=== PATIENT | male | born 1950 | race African-American/Black ===

== ENCOUNTER 2019-01-18 14:35 | Inpatient (IN) | payer MEDICARE ==
[~2019-01-18] VITALS: Ht 205.7 cm; Wt 104.0 kg
[2019-01-18] MEDS ORDERED: FAMOTIDINE 20MG/2ML VIAL IV STA (18:16)
[2019-01-18] MEDS ORDERED: MORPHINE SULFATE 4 MG/ML CPJ (NOT FOR IM USE) IV STA (18:16)
[2019-01-18] MEDS ORDERED: SODIUM CHLORIDE 0.9% 1,000 ML IV ONE (18:16)
[2019-01-18] MEDS ORDERED: ONDANSETRON HCL 4MG/2ML INJ IV STA (18:16)
[2019-01-18] MEDS ORDERED: MORPHINE SULFATE 10 MG/ML CPJ IV ONE (20:00)
[2019-01-18 20:22] LABS: HEMATOCRIT. 46.8 % (42.0-52.0); HEMOGLOBIN. 15.3 g/dL (14.0-18.0); MEAN CORPUSCULAR HEMOGLOBIN 30.3 pg (28.0-32.0); MEAN CORPUSCULAR VOLUME 92.6 fL (80.0-94.0); MEAN PLATELET VOLUME 9.7 fl (7.4-10.4); PLATELET 189 x1000/uL (130-400); RED BLOOD CELL COUNT 5.06 mill/uL (4.7-6.1); RED CELL DISTRIBUTION WIDTH 15.4 % (11.6-14.6)
[2019-01-18 20:28] LABS: CHLORIDE 110 mEq/L (98-107)
[2019-01-18 20:29] LABS: INR 1.3; PROTHROMBIN TIME 12.8 sec (9.1-11.1)
[2019-01-18] MEDS ORDERED: SODIUM CHLORIDE 0.9% 1000ML BAG (SEPSIS BOLUS) IV ONE (20:30)
[2019-01-18] MEDS ORDERED: PIPERACILLIN/TAZ 3.375G PREMIX 50 ML IV ONE (20:30)
[2019-01-18] MEDS ORDERED: VANCOMYCIN 1 G PREMIX 200 ML IV SCH (21:00)
[2019-01-18] MEDS ORDERED: ONDANSETRON HCL 4MG/2ML INJ IV PRN ×3 (21:00→23:00)
[2019-01-18 21:35] LABS: PLATELET ESTIMATE NORMAL
[2019-01-18] MEDS ORDERED: BUPIVACAINE HCL 0.5% (5MG/ML) 50ML ONE (21:39)
[2019-01-18] MEDS ORDERED: NEOSTIGMINE METHYLSULFATE 1MG/ML 10 ML VIAL ONE (22:01)
[2019-01-18] MEDS ORDERED: FENTANYL CITRATE/PF 50MCG/ML 2ML VIAL ONE (22:01)
[2019-01-18] MEDS ORDERED: ROCURONIUM BROMIDE 10MG/ML VIAL 5ML IV ONE (22:01)
[2019-01-18] MEDS ORDERED: PROPOFOL 200MG/20ML VIAL IV ONE (22:02)
[2019-01-18] MEDS ORDERED: MIDAZOLAM HCL 2 MG/2 ML VIAL ONE (22:02)
[2019-01-18] MEDS ORDERED: GLYCOPYRROLATE 0.2 MG/ML 2ML VIAL ONE (22:02)
[2019-01-18] MEDS ORDERED: DEXT 5%/0.45% NACL KCL 20MEQ/L 1,000 ML IV SCH (22:08)
[2019-01-18] MEDS ORDERED: ONDANSETRON HCL 4MG/2ML INJ ONE (22:09)
[2019-01-18] MEDS ORDERED: DEXAMETHASONE 4MG/ML 1ML VIAL ONE (22:09)
[2019-01-18] MEDS ORDERED: HYDROMORPHONE HCL/PF 2MG/ML (OR) ONE (22:29)
[2019-01-18] MEDS ORDERED: HYDROMORPHONE HCL/PF 2MG/ML CPJ IV PRN (23:00)
[2019-01-18] MEDS ORDERED: LABETALOL HCL 20MG/4ML CARPUJECT IV PRN (23:00)
[2019-01-18] MEDS ORDERED: MEPERIDINE HCL/PF 25MG/ML CPJ IV PRN (23:00)
[2019-01-19] VITALS (32 sets, daily range): BP systolic 105–188; BP diastolic 63–92
[2019-01-19] MEDS ORDERED: ACETAMINOPHEN 325MG TABLET PO PRN ×2 (00:45→01:15)
[2019-01-19] MEDS ORDERED: HYDROMORPHONE HCL/PF 2MG/ML CPJ IV PRN ×2 (00:48→11:30)
[2019-01-19] MEDS ORDERED: LABETALOL 5MG/ML SYR 20 MG/4 ML SYRINGE IV PRN (01:00)
[2019-01-19] MEDS ORDERED: LABETALOL HCL 20MG/4ML CARPUJECT IV PRN (01:00)
[2019-01-19] MEDS: DEXT 5%/0.9% NACL KCL 20MEQ/L 1,000 ML IV SCH ×3 (02:55→21:40)
[2019-01-19] MEDS: MORPHINE SULFATE 4 MG/ML CPJ (NOT FOR IM USE) IV PRN ×3 (02:56→10:31)
[2019-01-19] MEDS: VANCOMYCIN 1500MG in DEXTROSE 5% WATER 250ML IV SCH ×2 (03:28→14:53)
[2019-01-19 05:55] LABS: HEMATOCRIT. 46.4 % (42.0-52.0); HEMOGLOBIN. 15.1 g/dL (14.0-18.0); MEAN CORPUSCULAR HEMOGLOBIN 30.8 pg (28.0-32.0); MEAN CORPUSCULAR VOLUME 94.6 fL (80.0-94.0); MEAN PLATELET VOLUME 9.7 fl (7.4-10.4); PLATELET 192 x1000/uL (130-400); RED BLOOD CELL COUNT 4.91 mill/uL (4.7-6.1); RED CELL DISTRIBUTION WIDTH 15.9 % (11.6-14.6)
[2019-01-19 06:15] LABS: CHLORIDE 112 mEq/L (98-107)
[2019-01-19] MEDS: PIPERACILLIN/TAZ 3.375G PREMIX 50 ML IV SCH ×4 (06:27→23:40)
[2019-01-19] MEDS: LORAZEPAM 2MG/ML CPJ IV PRN ×3 (06:40→19:39)
[2019-01-19 07:23] LABS: PLATELET ESTIMATE NORMAL
[2019-01-19] MEDS: IPRATROPIUM/ALBUTEROL 0.5-3(2.5)MG/3ML NEB HHN SCH ×4 (09:10→20:01)
[2019-01-19] MEDS: FAMOTIDINE 20MG/2ML VIAL IV SCH ×2 (09:13→20:48)
[2019-01-19] MEDS: PANTOPRAZOLE SODIUM 40 MG/VIAL IV SCH (09:13)
[2019-01-19] MEDS: HYDROMORPHONE HCL/PF 2MG/ML CPJ IV PRN ×3 (11:04→20:49)
[2019-01-19] MEDS ORDERED: PIPERACILLIN/TAZ 3.375G PREMIX 50 ML IV SCH ×2 (18:00)
[2019-01-19 18:03] LABS: BG DEOXYHEMOGLOBIN 7.2 % (0.0-5.0); BG FRACTION INSPIRED OXYGEN 50; BG HCO3 ACT 22.5 mmol/L (22.0-26.0); BG METHEMOGLOBIN 0.4 % (0.0-1.5); BG OXYGEN SATURATION 92.7 % (92.0-98.5); BG OXYHEMOGLOBIN 91.4 % (94.0-97.0); BG PCO2 50.9 mmHg (35.0-45.0); BG PH 7.264 (7.350-7.450); BG PO2 65.8 mmHg (75.0-100.0); BG PRESSURE SUPPORT 8; BG SAMPLE SITE RIGHT RADIAL; BG TOTAL HEMOGLOBIN 16.3 g/dL (12.0-18.0); BG VENT MODE VENT - CPAP
[2019-01-19] MEDS: PROPOFOL 10MG/ML 100ML 100 ML IV PRN (21:40)
[2019-01-20] VITALS (42 sets, daily range): BP systolic 100–147; BP diastolic 45–91
[2019-01-20] MEDS: DEXT 5%/0.9% NACL KCL 20MEQ/L 1,000 ML IV SCH ×2 (01:53→05:38)
[2019-01-20] MEDS ORDERED: VANCOMYCIN 1500MG in DEXTROSE 5% WATER 250ML IV SCH ×2 (03:00→15:00)
[2019-01-20 05:10] LABS: MEAN CORPUSCULAR HEMOGLOBIN 30.5 pg (28.0-32.0); MEAN CORPUSCULAR VOLUME 93.2 fL (80.0-94.0); MEAN PLATELET VOLUME 9.8 fl (7.4-10.4); PLATELET 170 x1000/uL (130-400); RED BLOOD CELL COUNT 4.93 mill/uL (4.7-6.1); RED CELL DISTRIBUTION WIDTH 15.8 % (11.6-14.6)
[2019-01-20] MEDS: PROPOFOL 10MG/ML 100ML 100 ML IV PRN ×4 (05:27→21:28)
[2019-01-20] MEDS: PIPERACILLIN/TAZ 3.375G PREMIX 50 ML IV SCH ×4 (05:27→23:51)
[2019-01-20 05:31] LABS: CHLORIDE 112 mEq/L (98-107)
[2019-01-20 05:36] LABS: PHOSPHORUS 1.3 mg/dL (2.5-4.9)
[2019-01-20 05:39] LABS: CREATINE KINASE 441 IU/L (39-308)
[2019-01-20 05:41] LABS: CREATINE KINASE MB FRACTION 5.5 ng/mL (0.5-3.6)
[2019-01-20 07:32] LABS: PLATELET ESTIMATE NORMAL
[2019-01-20] MEDS: IPRATROPIUM/ALBUTEROL 0.5-3(2.5)MG/3ML NEB HHN SCH ×4 (08:26→20:17)
[2019-01-20] MEDS: DEXT 5%/0.45% NACL 1000ML 1,000 ML IV SCH (08:32)
[2019-01-20] MEDS: FAMOTIDINE 20MG/2ML VIAL IV SCH (08:32)
[2019-01-20] MEDS ORDERED: DILTIAZEM HCL 125 MG in DEXT 5% WATER 100 ML IV SCH (09:15)
[2019-01-20] MEDS ORDERED: ACETAMINOPHEN 650MG SUPP PR PRN (09:15)
[2019-01-20] MEDS ORDERED: POTASSIUM PHOS,M-BASIC-D-BASIC 20 MMOL in DEXT 5% WATER 243.3333 ML IV NR (09:30)
[2019-01-20] MEDS: PANTOPRAZOLE SODIUM 40 MG/VIAL IV SCH (09:49)
[2019-01-20 09:53] LABS: BG BASE EXCESS -5.1 mmol/L (-2.0-2.0); BG CARBOXYHEMOGLOBIN 0.9 % (0.5-1.5); BG DEOXYHEMOGLOBIN 1.7 % (0.0-5.0); BG METHEMOGLOBIN 0.4 % (0.0-1.5); BG OXYGEN SATURATION 98.3 % (92.0-98.5); BG PCO2 33.4 mmHg (35.0-45.0); BG PH 7.374 (7.350-7.450); BG PO2 106.2 mmHg (75.0-100.0); BG SAMPLE SITE RIGHT RADIAL; BG TIDAL VOLUME(mL) 550 mL; BG TOTAL HEMOGLOBIN 15.4 g/dL (12.0-18.0); BG VENT MODE VENT - A/C; BG VENT RATE 12 set
[2019-01-20] MEDS: DILTIAZEM HCL 125 MG in DEXT 5% WATER 100 ML IV PRN ×2 (11:00→19:20)
[2019-01-20 11:35] LABS: CLARITY URINE CLOUDY (CLEAR); COLOR URINE DARK YELLOW (YELLOW); KETONES URINE NEGATIVE (NEGATIVE); LEUKOCYTE ESTERASE URINE NEGATIVE (NEGATIVE); NITRITE URINE NEGATIVE (NEGATIVE); OCCULT BLOOD URINE 2+ (NEGATIVE); PROTEIN URINE 2+ (NEGATIVE); SPECIFIC GRAVITY URINE 1.026 (1.005-1.030); UROBILINOGEN URINE 0.2 E.U./dL (0.2-1.0)
[2019-01-20] MEDS: HYDROMORPHONE HCL/PF 2MG/ML CPJ IV PRN ×2 (15:06→19:45)
[2019-01-20] MEDS: VANCOMYCIN 1,750 MG in DEXT 5% WATER 250 ML IV SCH ×2 (15:10→22:55)
[2019-01-20] MEDS ORDERED: IOHEXOL-350 100 ML BOTTLE ONE (18:26)
[2019-01-20] MEDS ORDERED: ASPIRIN 300MG SUPP PR NR (18:30)
[2019-01-20] MEDS: FLUCONAZOLE 400MG/200ML BAG 200 ML IV SCH (19:02)
[2019-01-21] VITALS (30 sets, daily range): BP systolic 106–166; BP diastolic 63–105
[2019-01-21] MEDS: HYDROMORPHONE HCL/PF 2MG/ML CPJ IV PRN ×5 (00:10→18:13)
[2019-01-21] MEDS: IPRATROPIUM/ALBUTEROL 0.5-3(2.5)MG/3ML NEB HHN SCH ×5 (01:52→20:18)
[2019-01-21] MEDS: PROPOFOL 10MG/ML 100ML 100 ML IV PRN ×2 (02:35→08:20)
[2019-01-21] MEDS: PIPERACILLIN/TAZ 3.375G PREMIX 50 ML IV SCH ×3 (05:13→17:51)
[2019-01-21 05:55] LABS: HEMATOCRIT. 42.9 % (42.0-52.0); MEAN CORPUSCULAR HEMOGLOBIN 30.7 pg (28.0-32.0); MEAN CORPUSCULAR VOLUME 93.8 fL (80.0-94.0); MEAN PLATELET VOLUME 10.1 fl (7.4-10.4); PLATELET 174 x1000/uL (130-400); RED BLOOD CELL COUNT 4.57 mill/uL (4.7-6.1); RED CELL DISTRIBUTION WIDTH 15.7 % (11.6-14.6)
[2019-01-21] MEDS: VANCOMYCIN 1,750 MG in DEXT 5% WATER 250 ML IV SCH (06:33)
[2019-01-21 07:49] LABS: PLATELET ESTIMATE NORMAL
[2019-01-21 07:53] LABS: BG BASE EXCESS -2.5 mmol/L (-2.0-2.0); BG CARBOXYHEMOGLOBIN 0.6 % (0.5-1.5); BG DEOXYHEMOGLOBIN 3.6 % (0.0-5.0); BG FRACTION INSPIRED OXYGEN 45; BG METHEMOGLOBIN 0.3 % (0.0-1.5); BG OXYGEN SATURATION 96.4 % (92.0-98.5); BG OXYHEMOGLOBIN 95.5 % (94.0-97.0); BG PCO2 48.3 mmHg (35.0-45.0); BG PH 7.315 (7.350-7.450); BG PO2 83.7 mmHg (75.0-100.0); BG SAMPLE SITE RIGHT RADIAL; BG TIDAL VOLUME(mL) 500 mL; BG TOTAL HEMOGLOBIN 13.9 g/dL (12.0-18.0); BG VENT MODE VENT - A/C; BG VENT RATE 12 set
[2019-01-21] MEDS: PANTOPRAZOLE SODIUM 40 MG/VIAL IV SCH (08:19)
[2019-01-21] MEDS ORDERED: LORAZEPAM 2MG/ML CPJ IV PRN (09:15)
[2019-01-21 11:09] LABS: BG BASE EXCESS -0.5 mmol/L (-2.0-2.0); BG CARBOXYHEMOGLOBIN 0.4 % (0.5-1.5); BG DEOXYHEMOGLOBIN 3.3 % (0.0-5.0); BG FRACTION INSPIRED OXYGEN 45; BG HCO3 ACT 24.2 mmol/L (22.0-26.0); BG METHEMOGLOBIN 0.1 % (0.0-1.5); BG OXYGEN SATURATION 96.7 % (92.0-98.5); BG OXYHEMOGLOBIN 96.2 % (94.0-97.0); BG PCO2 40.2 mmHg (35.0-45.0); BG PH 7.398 (7.350-7.450); BG PO2 81.2 mmHg (75.0-100.0); BG SAMPLE SITE RIGHT RADIAL; BG TOTAL HEMOGLOBIN 14.4 g/dL (12.0-18.0); BG VENT MODE VENT - CPAP
[2019-01-21] MEDS: DEXT 5%/0.45% NACL 1000ML 1,000 ML IV SCH (11:25)
[2019-01-21] MEDS: FLUCONAZOLE 400MG/200ML BAG 200 ML IV SCH (15:40)
[2019-01-21] MEDS ORDERED: VANCOMYCIN 1500MG in DEXTROSE 5% WATER 250ML IV SCH (18:00)
[2019-01-21] MEDS ORDERED: SODIUM PHOS,M-BASIC-D-BASIC 15 MM in DEXT 5% WATER 245 ML IV NR (20:00)
[2019-01-21] MEDS: LORAZEPAM 2MG/ML CPJ IV PRN (21:39)
[2019-01-21] MEDS: DILTIAZEM HCL 125 MG in DEXT 5% WATER 100 ML IV PRN (23:23)
[2019-01-22] VITALS (84 sets, daily range): BP systolic 105–173; BP diastolic 62–107
[2019-01-22] MEDS: DEXT 5%/0.45% NACL 1000ML 1,000 ML IV SCH ×2 (00:41→12:35)
[2019-01-22] MEDS: PIPERACILLIN/TAZ 3.375G PREMIX 50 ML IV SCH ×5 (00:41→23:13)
[2019-01-22] MEDS: IPRATROPIUM/ALBUTEROL 0.5-3(2.5)MG/3ML NEB HHN SCH ×6 (01:14→20:22)
[2019-01-22] MEDS: HYDROMORPHONE HCL/PF 2MG/ML CPJ IV PRN ×2 (02:40→06:39)
[2019-01-22 05:57] LABS: HEMATOCRIT. 39.7 % (42.0-52.0); HEMOGLOBIN. 13.2 g/dL (14.0-18.0); MEAN CORPUSCULAR HEMOGLOBIN 30.8 pg (28.0-32.0); MEAN CORPUSCULAR VOLUME 92.6 fL (80.0-94.0); MEAN PLATELET VOLUME 9.7 fl (7.4-10.4); PLATELET 184 x1000/uL (130-400); RED BLOOD CELL COUNT 4.29 mill/uL (4.7-6.1); RED CELL DISTRIBUTION WIDTH 15.7 % (11.6-14.6)
[2019-01-22 06:00] LABS: CHLORIDE 109 mEq/L (98-107)
[2019-01-22 06:08] LABS: PHOSPHORUS 2.2 mg/dL (2.5-4.9)
[2019-01-22 06:10] LABS: CREATINE KINASE 473 IU/L (39-308)
[2019-01-22 06:13] LABS: CREATINE KINASE MB FRACTION 2.9 ng/mL (0.5-3.6)
[2019-01-22 07:18] LABS: BG BASE EXCESS -0.9 mmol/L (-2.0-2.0); BG DEOXYHEMOGLOBIN 7.2 % (0.0-5.0); BG METHEMOGLOBIN 0.3 % (0.0-1.5); BG OXYGEN SATURATION 92.7 % (92.0-98.5); BG OXYHEMOGLOBIN 91.5 % (94.0-97.0); BG PCO2 36.1 mmHg (35.0-45.0); BG PH 7.423 (7.350-7.450); BG PO2 61.7 mmHg (75.0-100.0); BG SAMPLE SITE RIGHT RADIAL; BG TOTAL HEMOGLOBIN 14.2 g/dL (12.0-18.0); BG VENT MODE NASAL CANNULA
[2019-01-22 08:45] LABS: PLATELET ESTIMATE NORMAL
[2019-01-22] MEDS ORDERED: ENOXAPARIN 100MG/ML SYR SUBCUT SCH (09:00)
[2019-01-22] MEDS ORDERED: ENOXAPARIN 80MG/0.8ML SYR SUBCUT SCH (09:00)
[2019-01-22] MEDS ORDERED: POTASSIUM PHOS,M-BASIC-D-BASIC 15 MMOL in DEXT 5% WATER 245 ML IV SCH (09:00)
[2019-01-22] MEDS: PANTOPRAZOLE SODIUM 40 MG/VIAL IV SCH (09:26)
[2019-01-22] MEDS: FLUCONAZOLE 400MG/200ML BAG 200 ML IV SCH (16:28)
[2019-01-22] MEDS: DILTIAZEM HCL 125 MG in DEXT 5% WATER 100 ML IV PRN (18:53)
[2019-01-22] MEDS: ONDANSETRON HCL 4MG/2ML INJ IV PRN (20:17)
[2019-01-22] MEDS: ENOXAPARIN 120MG/0.8ML SYR SUBCUT SCH (22:09)
[2019-01-23] VITALS (59 sets, daily range): BP systolic 111–178; BP diastolic 61–106
[2019-01-23] MEDS: IPRATROPIUM/ALBUTEROL 0.5-3(2.5)MG/3ML NEB HHN SCH ×6 (00:12→20:06)
[2019-01-23] MEDS: DEXT 5%/0.45% NACL 1000ML 1,000 ML IV SCH ×2 (01:40→16:21)
[2019-01-23] MEDS: DILTIAZEM HCL 125 MG in DEXT 5% WATER 100 ML IV PRN (01:41)
[2019-01-23 05:30] LABS: HEMATOCRIT. 42.7 % (42.0-52.0); HEMOGLOBIN. 14.1 g/dL (14.0-18.0); MEAN CORPUSCULAR HEMOGLOBIN 30.4 pg (28.0-32.0); MEAN PLATELET VOLUME 9.6 fl (7.4-10.4); PLATELET 200 x1000/uL (130-400); RED BLOOD CELL COUNT 4.64 mill/uL (4.7-6.1); RED CELL DISTRIBUTION WIDTH 15.7 % (11.6-14.6)
[2019-01-23 05:34] LABS: CHLORIDE 108 mEq/L (98-107)
[2019-01-23 05:44] LABS: PHOSPHORUS 2.8 mg/dL (2.5-4.9)
[2019-01-23] MEDS: PIPERACILLIN/TAZ 3.375G PREMIX 50 ML IV SCH ×3 (06:52→19:08)
[2019-01-23] MEDS ORDERED: LIDOCAINE HCL 1% 20ML VIAL (Pyxis) INJ ONE (08:11)
[2019-01-23] MEDS: ENOXAPARIN 120MG/0.8ML SYR SUBCUT SCH ×2 (08:38→21:26)
[2019-01-23] MEDS: PANTOPRAZOLE SODIUM 40 MG/VIAL IV SCH (08:38)
[2019-01-23] MEDS: ONDANSETRON HCL 4MG/2ML INJ IV PRN (08:38)
[2019-01-23] MEDS ORDERED: POTASSIUM CHLORIDE INJ 40 MEQ in DEXT 5% WATER 250 ML IV SCH (09:00)
[2019-01-23 09:41] LABS: PLATELET ESTIMATE NORMAL
[2019-01-23 10:26] LABS: BG BASE EXCESS 0.2 mmol/L (-2.0-2.0); BG CARBOXYHEMOGLOBIN 1.5 % (0.5-1.5); BG DEOXYHEMOGLOBIN 4.9 % (0.0-5.0); BG FRACTION INSPIRED OXYGEN 38; BG METHEMOGLOBIN 0.3 % (0.0-1.5); BG OXYHEMOGLOBIN 93.3 % (94.0-97.0); BG PCO2 40.9 mmHg (35.0-45.0); BG PH 7.404 (7.350-7.450); BG PO2 73.9 mmHg (75.0-100.0); BG SAMPLE SITE RIGHT RADIAL; BG TOTAL HEMOGLOBIN 14.9 g/dL (12.0-18.0); BG VENT MODE NASAL CANNULA
[2019-01-23] MEDS: HYDROMORPHONE HCL/PF 2MG/ML CPJ IV PRN ×2 (13:06→22:30)
[2019-01-23] MEDS: FLUCONAZOLE 400MG/200ML BAG 200 ML IV SCH (16:21)
[2019-01-23] MEDS: BLOOD SUGAR DIAGNOSTIC STRIP TEST SCH (18:00)
[2019-01-23] MEDS ORDERED: TOTAL PARENTERAL NUTRITION 1,200 ML IV SCH (21:00)
[2019-01-24] VITALS (74 sets, daily range): BP systolic 106–179; BP diastolic 35–97
[2019-01-24] MEDS: IPRATROPIUM/ALBUTEROL 0.5-3(2.5)MG/3ML NEB HHN SCH ×6 (00:02→20:47)
[2019-01-24] MEDS: PIPERACILLIN/TAZ 3.375G PREMIX 50 ML IV SCH ×4 (02:39→18:46)
[2019-01-24] MEDS: DILTIAZEM HCL 125 MG in DEXT 5% WATER 100 ML IV PRN ×2 (04:17→17:31)
[2019-01-24 05:39] LABS: HEMATOCRIT. 41.5 % (42.0-52.0); HEMOGLOBIN. 13.6 g/dL (14.0-18.0); MEAN CORPUSCULAR HEMOGLOBIN 30.5 pg (28.0-32.0); MEAN CORPUSCULAR VOLUME 92.8 fL (80.0-94.0); PLATELET 206 x1000/uL (130-400); RED BLOOD CELL COUNT 4.47 mill/uL (4.7-6.1); RED CELL DISTRIBUTION WIDTH 15.4 % (11.6-14.6)
[2019-01-24 05:49] LABS: CHLORIDE 108 mEq/L (98-107)
[2019-01-24] MEDS: BLOOD SUGAR DIAGNOSTIC STRIP TEST SCH ×4 (05:49→18:00)
[2019-01-24] MEDS: DEXT 5%/0.45% NACL 1000ML 1,000 ML IV SCH (05:49)
[2019-01-24 05:54] LABS: PHOSPHORUS 2.4 mg/dL (2.5-4.9)
[2019-01-24] MEDS: HYDROMORPHONE HCL/PF 2MG/ML CPJ IV PRN ×5 (08:11→20:31)
[2019-01-24] MEDS: PANTOPRAZOLE SODIUM 40 MG/VIAL IV SCH (08:11)
[2019-01-24] MEDS: ENOXAPARIN 120MG/0.8ML SYR SUBCUT SCH ×2 (08:12→20:32)
[2019-01-24 09:48] LABS: PLATELET ESTIMATE NORMAL
[2019-01-24] MEDS ORDERED: POTASSIUM PHOS,M-BASIC-D-BASIC 15 MMOL in DEXT 5% WATER 245 ML IV NR (13:00)
[2019-01-24] MEDS: FLUCONAZOLE 400MG/200ML BAG 200 ML IV SCH (16:35)
[2019-01-24] MEDS ORDERED: AMIODARONE HCL 150 MG in DEXT 5% WATER 100 ML IV NR (17:30)
[2019-01-24] MEDS ORDERED: AMIODARONE HCL 900 MG in DEXT 5% WATER 482 ML IV SCH (18:30)
[2019-01-24] MEDS ORDERED: TOTAL PARENTERAL NUTRITION 1,700 ML IV SCH (21:00)
[2019-01-25] VITALS (76 sets, daily range): BP systolic 102–173; BP diastolic 29–111
[2019-01-25] MEDS: PIPERACILLIN/TAZ 3.375G PREMIX 50 ML IV SCH ×5 (00:05→23:53)
[2019-01-25] MEDS: BLOOD SUGAR DIAGNOSTIC STRIP TEST SCH ×5 (00:05→23:14)
[2019-01-25] MEDS: IPRATROPIUM/ALBUTEROL 0.5-3(2.5)MG/3ML NEB HHN SCH ×6 (00:16→20:40)
[2019-01-25] MEDS: HYDROMORPHONE HCL/PF 2MG/ML CPJ IV PRN ×8 (00:16→23:34)
[2019-01-25] MEDS: DILTIAZEM HCL 125 MG in DEXT 5% WATER 100 ML IV PRN (02:00)
[2019-01-25 05:26] LABS: HEMATOCRIT. 37.8 % (42.0-52.0); HEMOGLOBIN. 12.5 g/dL (14.0-18.0); MEAN CORPUSCULAR HEMOGLOBIN 30.5 pg (28.0-32.0); MEAN CORPUSCULAR VOLUME 92.6 fL (80.0-94.0); MEAN PLATELET VOLUME 9.3 fl (7.4-10.4); PLATELET 188 x1000/uL (130-400); RED BLOOD CELL COUNT 4.09 mill/uL (4.7-6.1); RED CELL DISTRIBUTION WIDTH 15.6 % (11.6-14.6)
[2019-01-25 06:11] LABS: CHLORIDE 107 mEq/L (98-107)
[2019-01-25 06:24] LABS: PHOSPHORUS 2.8 mg/dL (2.5-4.9)
[2019-01-25] MEDS: ENOXAPARIN 120MG/0.8ML SYR SUBCUT SCH ×2 (08:52→20:17)
[2019-01-25] MEDS: PANTOPRAZOLE SODIUM 40 MG/VIAL IV SCH (08:52)
[2019-01-25] MEDS: ONDANSETRON HCL 4MG/2ML INJ IV PRN (09:08)
[2019-01-25 10:05] LABS: PLATELET ESTIMATE NORMAL
[2019-01-25] MEDS: FLUCONAZOLE 400MG/200ML BAG 200 ML IV SCH (15:03)
[2019-01-25] MEDS ORDERED: POTASSIUM PHOS,M-BASIC-D-BASIC 15 MMOL in DEXT 5% WATER 245 ML IV SCH (16:00)
[2019-01-25] MEDS ORDERED: TOTAL PARENTERAL NUTRITION 2,300 ML IV SCH (21:00)
[2019-01-26] VITALS (76 sets, daily range): BP systolic 123–178; BP diastolic 70–132
[2019-01-26] MEDS: IPRATROPIUM/ALBUTEROL 0.5-3(2.5)MG/3ML NEB HHN SCH ×6 (00:39→20:22)
[2019-01-26] MEDS: HYDROMORPHONE HCL/PF 2MG/ML CPJ IV PRN ×5 (04:32→22:41)
[2019-01-26] MEDS: PIPERACILLIN/TAZ 3.375G PREMIX 50 ML IV SCH ×4 (05:11→23:16)
[2019-01-26] MEDS: BLOOD SUGAR DIAGNOSTIC STRIP TEST SCH ×4 (05:34→23:22)
[2019-01-26 05:54] LABS: HEMATOCRIT. 37.4 % (42.0-52.0); HEMOGLOBIN. 12.4 g/dL (14.0-18.0); MEAN CORPUSCULAR HEMOGLOBIN 30.5 pg (28.0-32.0); MEAN CORPUSCULAR VOLUME 92.2 fL (80.0-94.0); MEAN PLATELET VOLUME 10.8 fl (7.4-10.4); PLATELET 224 x1000/uL (130-400); RED BLOOD CELL COUNT 4.06 mill/uL (4.7-6.1); RED CELL DISTRIBUTION WIDTH 15.5 % (11.6-14.6)
[2019-01-26 05:55] LABS: CHLORIDE 106 mEq/L (98-107)
[2019-01-26 06:07] LABS: LDL CHOLESTEROL 43 mg/dL (5-100)
[2019-01-26 06:09] LABS: HDL CHOLESTEROL 32 mg/dL (40-59)
[2019-01-26 07:12] LABS: PLATELET ESTIMATE NORMAL
[2019-01-26] MEDS: PANTOPRAZOLE SODIUM 40 MG/VIAL IV SCH (08:47)
[2019-01-26] MEDS: ENOXAPARIN 120MG/0.8ML SYR SUBCUT SCH ×2 (08:48→21:01)
[2019-01-26] MEDS: CLONIDINE HCL 0.2MG/24HR PATCH TD SCH (10:56)
[2019-01-26] MEDS ORDERED: KCL 20MEQ/100ML PREMIX 100 ML IV NR (11:30)
[2019-01-26] MEDS: FLUCONAZOLE 400MG/200ML BAG 200 ML IV SCH (17:09)
[2019-01-26] MEDS ORDERED: FAT EMULSIONS 500 ML IV SCH (21:00)
[2019-01-26] MEDS ORDERED: TOTAL PARENTERAL NUTRITION 2,300 ML IV SCH (21:00)
[2019-01-27] VITALS (30 sets, daily range): BP systolic 118–165; BP diastolic 67–104
[2019-01-27] MEDS: IPRATROPIUM/ALBUTEROL 0.5-3(2.5)MG/3ML NEB HHN SCH ×6 (00:11→21:48)
[2019-01-27] MEDS: HYDROMORPHONE HCL/PF 2MG/ML CPJ IV PRN ×4 (05:00→20:10)
[2019-01-27] MEDS: PIPERACILLIN/TAZ 3.375G PREMIX 50 ML IV SCH ×3 (05:15→22:20)
[2019-01-27] MEDS: BLOOD SUGAR DIAGNOSTIC STRIP TEST SCH ×3 (05:28→17:08)
[2019-01-27 06:09] LABS: HEMATOCRIT. 38.2 % (42.0-52.0); HEMOGLOBIN. 12.8 g/dL (14.0-18.0); MEAN CORPUSCULAR HEMOGLOBIN 30.9 pg (28.0-32.0); MEAN CORPUSCULAR VOLUME 92.6 fL (80.0-94.0); MEAN PLATELET VOLUME 11.2 fl (7.4-10.4); PLATELET 250 x1000/uL (130-400); RED BLOOD CELL COUNT 4.13 mill/uL (4.7-6.1); RED CELL DISTRIBUTION WIDTH 15.5 % (11.6-14.6)
[2019-01-27 06:34] LABS: CHLORIDE 104 mEq/L (98-107)
[2019-01-27 08:17] LABS: PLATELET ESTIMATE NORMAL
[2019-01-27] MEDS: PANTOPRAZOLE SODIUM 40 MG/VIAL IV SCH (09:27)
[2019-01-27] MEDS: ENOXAPARIN 120MG/0.8ML SYR SUBCUT SCH (09:27)
[2019-01-27] MEDS: FLUCONAZOLE 400MG/200ML BAG 200 ML IV SCH (15:01)
[2019-01-27] MEDS ORDERED: KCL 20MEQ/100ML PREMIX 100 ML IV NR (16:00)
[2019-01-27] MEDS ORDERED: AMIODARONE HCL 150 MG in DEXT 5% WATER 100 ML IV NR (16:50)
[2019-01-27] MEDS ORDERED: TOTAL PARENTERAL NUTRITION 2,300 ML IV SCH (21:00)
[2019-01-27] MEDS: AMIODARONE HCL 900 MG in DEXT 5% WATER 500 ML IV SCH (23:18)
[2019-01-28] VITALS (11 sets, daily range): BP systolic 122–156; BP diastolic 67–91
[2019-01-28] MEDS: IPRATROPIUM/ALBUTEROL 0.5-3(2.5)MG/3ML NEB HHN SCH ×6 (02:31→21:06)
[2019-01-28] MEDS: PIPERACILLIN/TAZ 3.375G PREMIX 50 ML IV SCH ×5 (02:36→23:21)
[2019-01-28] MEDS: HYDROMORPHONE HCL/PF 2MG/ML CPJ IV PRN ×3 (03:50→23:22)
[2019-01-28] MEDS: PANTOPRAZOLE SODIUM 40 MG/VIAL IV SCH (09:21)
[2019-01-28 09:33] LABS: HEMOGLOBIN. 11.6 g/dL (14.0-18.0); MEAN CORPUSCULAR HEMOGLOBIN 29.9 pg (28.0-32.0); MEAN CORPUSCULAR VOLUME 92.5 fL (80.0-94.0); MEAN PLATELET VOLUME 11.3 fl (7.4-10.4); PLATELET 291 x1000/uL (130-400); RED BLOOD CELL COUNT 3.89 mill/uL (4.7-6.1); RED CELL DISTRIBUTION WIDTH 15.5 % (11.6-14.6)
[2019-01-28 09:43] LABS: CHLORIDE 105 mEq/L (98-107)
[2019-01-28 09:49] LABS: PHOSPHORUS 2.5 mg/dL (2.5-4.9)
[2019-01-28 10:09] LABS: ATYPICAL LYMPHOCYTES 3; PLATELET ESTIMATE NORMAL
[2019-01-28] MEDS: FLUCONAZOLE 400MG/200ML BAG 200 ML IV SCH (16:12)
[2019-01-28] MEDS ORDERED: TOTAL PARENTERAL NUTRITION 2,300 ML IV SCH (21:00)
[2019-01-29] VITALS (12 sets, daily range): BP systolic 119–137; BP diastolic 65–88
[2019-01-29] MEDS: IPRATROPIUM/ALBUTEROL 0.5-3(2.5)MG/3ML NEB HHN SCH ×6 (00:57→21:56)
[2019-01-29] MEDS: AMIODARONE HCL 900 MG in DEXT 5% WATER 500 ML IV SCH (04:29)
[2019-01-29] MEDS: PIPERACILLIN/TAZ 3.375G PREMIX 50 ML IV SCH ×3 (06:30→17:24)
[2019-01-29 07:09] LABS: HEMOGLOBIN. 11.5 g/dL (14.0-18.0); MEAN CORPUSCULAR HEMOGLOBIN 30.4 pg (28.0-32.0); MEAN CORPUSCULAR VOLUME 92.8 fL (80.0-94.0); MEAN PLATELET VOLUME 11.2 fl (7.4-10.4); PLATELET 322 x1000/uL (130-400); RED BLOOD CELL COUNT 3.78 mill/uL (4.7-6.1); RED CELL DISTRIBUTION WIDTH 15.2 % (11.6-14.6)
[2019-01-29 07:25] LABS: CHLORIDE 107 mEq/L (98-107)
[2019-01-29] MEDS: HYDROMORPHONE HCL/PF 2MG/ML CPJ IV PRN ×3 (08:04→19:24)
[2019-01-29] MEDS: PANTOPRAZOLE SODIUM 40 MG/VIAL IV SCH (09:25)
[2019-01-29 09:56] LABS: PLATELET ESTIMATE NORMAL
[2019-01-29] MEDS: FLUCONAZOLE 400MG/200ML BAG 200 ML IV SCH (16:16)
[2019-01-29] MEDS ORDERED: TOTAL PARENTERAL NUTRITION 2,300 ML IV SCH (21:00)
[2019-01-30] VITALS (12 sets, daily range): BP systolic 105–153; BP diastolic 52–93
[2019-01-30] MEDS: PIPERACILLIN/TAZ 3.375G PREMIX 50 ML IV SCH ×5 (00:24→23:11)
[2019-01-30] MEDS: IPRATROPIUM/ALBUTEROL 0.5-3(2.5)MG/3ML NEB HHN SCH ×6 (00:34→20:05)
[2019-01-30] MEDS: HYDROMORPHONE HCL/PF 2MG/ML CPJ IV PRN ×3 (03:25→14:27)
[2019-01-30 06:57] LABS: HEMATOCRIT. 35.1 % (42.0-52.0); HEMOGLOBIN. 11.4 g/dL (14.0-18.0); MEAN CORPUSCULAR HEMOGLOBIN 29.8 pg (28.0-32.0); MEAN CORPUSCULAR VOLUME 92.1 fL (80.0-94.0); MEAN PLATELET VOLUME 11.4 fl (7.4-10.4); PLATELET 335 x1000/uL (130-400); RED BLOOD CELL COUNT 3.81 mill/uL (4.7-6.1); RED CELL DISTRIBUTION WIDTH 15.4 % (11.6-14.6)
[2019-01-30 07:39] LABS: CHLORIDE 108 mEq/L (98-107)
[2019-01-30 07:43] LABS: PHOSPHORUS 3.1 mg/dL (2.5-4.9)
[2019-01-30] MEDS: PANTOPRAZOLE SODIUM 40 MG/VIAL IV SCH (08:08)
[2019-01-30] MEDS ORDERED: TOTAL PARENTERAL NUTRITION 2,300 ML IV SCH ×2 (10:00→21:00)
[2019-01-30 11:32] LABS: PLATELET ESTIMATE NORMAL
[2019-01-30] MEDS ORDERED: SODIUM BICARBONATE 4% (2.4MEQ) 5ML VIAL IV ONE (11:46)
[2019-01-30] MEDS ORDERED: LIDOCAINE HCL 1% 20ML VIAL (Pyxis) INJ ONE (11:47)
[2019-01-30] MEDS: FLUCONAZOLE 400MG/200ML BAG 200 ML IV SCH (15:25)
[2019-01-30] MEDS ORDERED: FAT EMULSIONS 500 ML IV SCH (21:00)
[2019-01-31] VITALS (12 sets, daily range): BP systolic 111–141; BP diastolic 65–91
[2019-01-31] MEDS: IPRATROPIUM/ALBUTEROL 0.5-3(2.5)MG/3ML NEB HHN SCH ×7 (01:05→21:39)
[2019-01-31] MEDS: PIPERACILLIN/TAZ 3.375G PREMIX 50 ML IV SCH ×3 (06:04→18:45)
[2019-01-31 06:37] LABS: HEMATOCRIT. 35.9 % (42.0-52.0); HEMOGLOBIN. 11.7 g/dL (14.0-18.0); MEAN CORPUSCULAR VOLUME 91.9 fL (80.0-94.0); MEAN PLATELET VOLUME 11.1 fl (7.4-10.4); PLATELET 381 x1000/uL (130-400); RED BLOOD CELL COUNT 3.91 mill/uL (4.7-6.1); RED CELL DISTRIBUTION WIDTH 15.8 % (11.6-14.6)
[2019-01-31 06:54] LABS: CHLORIDE 105 mEq/L (98-107)
[2019-01-31 07:06] LABS: LDL CHOLESTEROL 46 mg/dL (5-100)
[2019-01-31 07:07] LABS: PHOSPHORUS 2.9 mg/dL (2.5-4.9)
[2019-01-31 07:10] LABS: HDL CHOLESTEROL 27 mg/dL (40-59)
[2019-01-31] MEDS: PANTOPRAZOLE SODIUM 40 MG/VIAL IV SCH (08:31)
[2019-01-31] MEDS: HYDROMORPHONE HCL/PF 2MG/ML CPJ IV PRN ×2 (08:32→16:57)
[2019-01-31] MEDS: FLUCONAZOLE 400MG/200ML BAG 200 ML IV SCH (16:47)
[2019-01-31] MEDS ORDERED: TOTAL PARENTERAL NUTRITION 2,300 ML IV SCH (21:00)
[2019-02-01] VITALS (12 sets, daily range): BP systolic 123–160; BP diastolic 72–118
[2019-02-01] MEDS: PIPERACILLIN/TAZ 3.375G PREMIX 50 ML IV SCH ×5 (00:18→23:54)
[2019-02-01] MEDS: HYDROMORPHONE HCL/PF 2MG/ML CPJ IV PRN ×3 (02:45→21:16)
[2019-02-01 05:13] LABS: PLATELET ESTIMATE NORMAL
[2019-02-01 05:56] LABS: HEMATOCRIT. 36.6 % (42.0-52.0); HEMOGLOBIN. 11.9 g/dL (14.0-18.0); MEAN CORPUSCULAR VOLUME 92.2 fL (80.0-94.0); MEAN PLATELET VOLUME 10.6 fl (7.4-10.4); PLATELET 406 x1000/uL (130-400); RED BLOOD CELL COUNT 3.97 mill/uL (4.7-6.1); RED CELL DISTRIBUTION WIDTH 15.3 % (11.6-14.6)
[2019-02-01 06:14] LABS: CHLORIDE 106 mEq/L (98-107)
[2019-02-01] MEDS: PANTOPRAZOLE SODIUM 40 MG/VIAL IV SCH (08:33)
[2019-02-01] MEDS: IPRATROPIUM/ALBUTEROL 0.5-3(2.5)MG/3ML NEB HHN SCH ×4 (09:30→20:31)
[2019-02-01 10:52] LABS: PLATELET ESTIMATE SLIGHTLY INCREASED
[2019-02-01] MEDS: FLUCONAZOLE 400MG/200ML BAG 200 ML IV SCH (15:41)
[2019-02-01] MEDS ORDERED: TOTAL PARENTERAL NUTRITION 2,300 ML IV SCH (21:00)
[2019-02-02] VITALS (12 sets, daily range): BP systolic 115–153; BP diastolic 63–95
[2019-02-02] MEDS: IPRATROPIUM/ALBUTEROL 0.5-3(2.5)MG/3ML NEB HHN SCH ×7 (04:00→21:22)
[2019-02-02] MEDS: PIPERACILLIN/TAZ 3.375G PREMIX 50 ML IV SCH ×3 (05:59→17:02)
[2019-02-02 06:18] LABS: CHLORIDE 104 mEq/L (98-107)
[2019-02-02] MEDS: BLOOD SUGAR DIAGNOSTIC STRIP TEST SCH ×3 (06:25→17:11)
[2019-02-02 06:26] LABS: PHOSPHORUS 2.7 mg/dL (2.5-4.9)
[2019-02-02 06:38] LABS: HEMOGLOBIN. 11.3 g/dL (14.0-18.0); MEAN CORPUSCULAR HEMOGLOBIN 30.5 pg (28.0-32.0); MEAN CORPUSCULAR VOLUME 92.1 fL (80.0-94.0); MEAN PLATELET VOLUME 10.7 fl (7.4-10.4); PLATELET 367 x1000/uL (130-400); RED CELL DISTRIBUTION WIDTH 15.6 % (11.6-14.6)
[2019-02-02] MEDS: PANTOPRAZOLE SODIUM 40 MG/VIAL IV SCH (08:02)
[2019-02-02] MEDS: CLONIDINE HCL 0.2MG/24HR PATCH TD SCH (08:03)
[2019-02-02] MEDS: HYDROMORPHONE HCL/PF 2MG/ML CPJ IV PRN ×3 (10:18→22:58)
[2019-02-02 10:48] LABS: PLATELET ESTIMATE NORMAL
[2019-02-02] MEDS: FLUCONAZOLE 400MG/200ML BAG 200 ML IV SCH (15:07)
[2019-02-02] MEDS ORDERED: FAT EMULSIONS 500 ML IV SCH (21:00)
[2019-02-03] VITALS (12 sets, daily range): BP systolic 125–148; BP diastolic 37–88
[2019-02-03] MEDS: IPRATROPIUM/ALBUTEROL 0.5-3(2.5)MG/3ML NEB HHN SCH ×4 (00:38→13:58)
[2019-02-03] MEDS: HYDROMORPHONE HCL/PF 2MG/ML CPJ IV PRN ×4 (05:36→23:38)
[2019-02-03 06:15] LABS: HEMATOCRIT. 35.8 % (42.0-52.0); HEMOGLOBIN. 11.6 g/dL (14.0-18.0); MEAN CORPUSCULAR HEMOGLOBIN 30.3 pg (28.0-32.0); MEAN CORPUSCULAR VOLUME 92.9 fL (80.0-94.0); MEAN PLATELET VOLUME 10.6 fl (7.4-10.4); PLATELET 379 x1000/uL (130-400); RED BLOOD CELL COUNT 3.85 mill/uL (4.7-6.1); RED CELL DISTRIBUTION WIDTH 15.5 % (11.6-14.6)
[2019-02-03 06:19] LABS: CHLORIDE 105 mEq/L (98-107)
[2019-02-03] MEDS: PANTOPRAZOLE SODIUM 40 MG/VIAL IV SCH (08:28)
[2019-02-03 10:43] LABS: BG BASE EXCESS 0.1 mmol/L (-2.0-2.0); BG CARBOXYHEMOGLOBIN 0.4 % (0.5-1.5); BG DEOXYHEMOGLOBIN 3.2 % (0.0-5.0); BG FRACTION INSPIRED OXYGEN 21; BG HCO3 ACT 23.1 mmol/L (22.0-26.0); BG METHEMOGLOBIN 0.2 % (0.0-1.5); BG OXYGEN SATURATION 96.8 % (92.0-98.5); BG OXYHEMOGLOBIN 96.2 % (94.0-97.0); BG PCO2 32.4 mmHg (35.0-45.0); BG SAMPLE SITE RIGHT RADIAL; BG VENT MODE ROOM AIR
[2019-02-03 16:30] LABS: PLATELET ESTIMATE NORMAL
[2019-02-03] MEDS ORDERED: HYDROMORPHONE HCL/PF 2MG/ML CPJ IM PRN (17:30)
[2019-02-03] MEDS ORDERED: HYDROCODONE/ACETAMINOPHEN 5/325MG TABLET PO PRN (17:36)
[2019-02-04] VITALS (13 sets, daily range): BP systolic 114–146; BP diastolic 58–94
[2019-02-04] MEDS: IPRATROPIUM/ALBUTEROL 0.5-3(2.5)MG/3ML NEB HHN SCH ×5 (01:30→20:52)
[2019-02-04] MEDS: HYDROMORPHONE HCL/PF 2MG/ML CPJ IV PRN ×4 (06:58→23:29)
[2019-02-04] MEDS: DOCUSATE SODIUM 250MG CAPSULE PO SCH ×3 (09:00→17:00)
[2019-02-04] MEDS: PANTOPRAZOLE SODIUM 40 MG/VIAL IV SCH (09:07)
[2019-02-05] VITALS (12 sets, daily range): BP systolic 108–146; BP diastolic 62–89
[2019-02-05] MEDS: IPRATROPIUM/ALBUTEROL 0.5-3(2.5)MG/3ML NEB HHN SCH ×5 (00:11→21:39)
[2019-02-05] MEDS: HYDROMORPHONE HCL/PF 2MG/ML CPJ IV PRN ×4 (05:16→19:20)
[2019-02-05 06:53] LABS: HEMATOCRIT. 37.7 % (42.0-52.0); HEMOGLOBIN. 12.5 g/dL (14.0-18.0); MEAN CORPUSCULAR HEMOGLOBIN 30.4 pg (28.0-32.0); MEAN CORPUSCULAR VOLUME 91.9 fL (80.0-94.0); MEAN PLATELET VOLUME 10.4 fl (7.4-10.4); PLATELET 370 x1000/uL (130-400); RED CELL DISTRIBUTION WIDTH 15.6 % (11.6-14.6)
[2019-02-05 07:47] LABS: CHLORIDE 102 mEq/L (98-107)
[2019-02-05] MEDS: DOCUSATE SODIUM 250MG CAPSULE PO SCH ×2 (09:00→17:00)
[2019-02-05] MEDS: PANTOPRAZOLE SODIUM 40 MG/VIAL IV SCH (09:13)
[2019-02-05 11:49] LABS: PLATELET ESTIMATE NORMAL
[2019-02-06] VITALS (10 sets, daily range): BP systolic 116–143; BP diastolic 56–88
[2019-02-06] MEDS: IPRATROPIUM/ALBUTEROL 0.5-3(2.5)MG/3ML NEB HHN SCH ×4 (03:15→11:32)
[2019-02-06] MEDS: HYDROMORPHONE HCL/PF 2MG/ML CPJ IV PRN ×3 (03:39→16:17)
[2019-02-06] MEDS: PANTOPRAZOLE SODIUM 40 MG/VIAL IV SCH (08:14)
[2019-02-06] MEDS: DOCUSATE SODIUM 250MG CAPSULE PO SCH ×2 (08:14→17:00)
== END 2019-02-06 18:26 | DRG 710 ==
LOC: ER 14:35 → MICUNO 20:52 → ENRESERV 21:49 → CVICU 01-22 → 3WST 01-27 12:16
PROVIDERS: ADMIT Internal Medicine Geriatric Medicine; ATTEND Internal Medicine Geriatric Medicine
PROC: 0D1M0Z4 Bypass Descending Colon to Cutaneous, Open Approach (ICD-10-PCS; principal; 2019-01-18)
PROC: 0DTN0ZZ Resection of Sigmoid Colon, Open Approach (ICD-10-PCS; 2019-01-18)
PROC: 5A1945Z Respiratory Ventilation, 24-96 Consecutive Hours (ICD-10-PCS; 2019-01-18)
PROC: 0DBP0ZZ Excision of Rectum, Open Approach (ICD-10-PCS; 2019-01-18)
PROC: 0BH17EZ Insertion of Endotracheal Airway into Trachea, Via Natural or Artificial Opening (ICD-10-PCS; 2019-01-18)
PROC: 0D9670Z Drainage of Stomach with Drainage Device, Via Natural or Artificial Opening (ICD-10-PCS; 2019-01-19)
PROC: 05H533Z Insertion of Infusion Device into Right Subclavian Vein, Percutaneous Approach (ICD-10-PCS; 2019-01-23)
PROC: B546ZZA Ultrasonography of Right Subclavian Vein, Guidance (ICD-10-PCS; 2019-01-23)
PROC: 3E0336Z Introduction of Nutritional Substance into Peripheral Vein, Percutaneous Approach (ICD-10-PCS; 2019-01-24)
PROC: 02HV33Z Insertion of Infusion Device into Superior Vena Cava, Percutaneous Approach (ICD-10-PCS; 2019-01-30)
PROC: B5181ZA Fluoroscopy of Superior Vena Cava using Low Osmolar Contrast, Guidance (ICD-10-PCS; 2019-01-30)
PROC: B548ZZA Ultrasonography of Superior Vena Cava, Guidance (ICD-10-PCS; 2019-01-30)
DX: A41.9 Sepsis, unspecified organism (principal); J96.00 Acute respiratory failure, unspecified whether with hypoxia or hypercapnia; I21.4 Non-ST elevation (NSTEMI) myocardial infarction; N17.0 Acute kidney failure with tubular necrosis; E43 Unspecified severe protein-calorie malnutrition; G92 Toxic encephalopathy; J18.1 Lobar pneumonia, unspecified organism; K65.9 Peritonitis, unspecified; E87.2 Acidosis; K66.8 Other specified disorders of peritoneum; E83.39 Other disorders of phosphorus metabolism; I10 Essential (primary) hypertension; J45.909 Unspecified asthma, uncomplicated; J98.11 Atelectasis; K57.80 Diverticulitis of intestine, part unspecified, with perforation and abscess without bleeding; R73.9 Hyperglycemia, unspecified; E87.6 Hypokalemia; I45.81 Long QT syndrome; I45.10 Unspecified right bundle-branch block; R74.0 Nonspecific elevation of levels of transaminase and lactic acid dehydrogenase [LDH]; E78.1 Pure hyperglyceridemia; E78.5 Hyperlipidemia, unspecified; I48.0 Paroxysmal atrial fibrillation; D72.1 Eosinophilia; K42.9 Umbilical hernia without obstruction or gangrene; K56.7 Ileus, unspecified; Z87.81 Personal history of (healed) traumatic fracture
CPT/HCPCS: 36415; 36569; 36600; 71045; 71275; 74018; 74176; 76937; 77001; 80048; 80061; 80076; 80202; 82375; 82550; 82553; 82805; 82962; 83036; 83605; 83735; 83880; 84100; 84443; 84478; 84484; 85379; 86850; 86900; 87070; 87075; 87077; 87186; 88307; 93005; 93306; 93970; 93971; 94002; 94003; 94640; 96374; 96375; 97116; 97163; 97530; 99291; C1725; C9113; J0282; J1100; J1170; J1450; J1650; J2060; J2250; J2270; J2405; J2543; J2704; J2710; J3010; J3370; J3480; J3490; J7030; J7040; J7050; J7060; J7620; Q9967

== ENCOUNTER 2019-02-19 02:56 | Inpatient (IN) | payer MEDICARE ==
[~2019-02-19] VITALS: Ht 203.2 cm; Wt 96.6 kg
[2019-02-19] MEDS ORDERED: MORPHINE SULFATE 4 MG/ML CPJ (NOT FOR IM USE) IV STA (04:05)
[2019-02-19] MEDS ORDERED: SODIUM CHLORIDE 0.9% 1,000 ML IV ONE (04:05)
[2019-02-19] MEDS ORDERED: ONDANSETRON HCL 4MG/2ML INJ IV STA (04:05)
[2019-02-19 04:43] LABS: BASOPHILS % 0.5 % (0.0-2.0); EOSINOPHILS % 1.6 % (0.0-5.0); HEMATOCRIT. 39.8 % (42.0-52.0); HEMOGLOBIN. 13.2 g/dL (14.0-18.0); LYMPHOCYTES % 13.2 % (20.0-50.0); MEAN CORPUSCULAR HEMOGLOBIN 30.6 pg (28.0-32.0); MEAN CORPUSCULAR VOLUME 92.2 fL (80.0-94.0); MEAN PLATELET VOLUME 9.3 fl (7.4-10.4); MONOCYTES % 4.5 % (2.0-8.0); NEUTROPHILS % 80.2 % (40.0-76.0); PLATELET 317 x1000/uL (130-400); RED BLOOD CELL COUNT 4.32 mill/uL (4.7-6.1); RED CELL DISTRIBUTION WIDTH 15.6 % (11.6-14.6)
[2019-02-19 04:49] LABS: CHLORIDE 101 mEq/L (98-107)
[2019-02-19 05:12] LABS: CLARITY URINE CLOUDY (CLEAR); COLOR URINE DARK YELLOW (YELLOW); KETONES URINE 1+ (NEGATIVE); LEUKOCYTE ESTERASE URINE 2+ (NEGATIVE); NITRITE URINE POSITIVE (NEGATIVE); OCCULT BLOOD URINE 1+ (NEGATIVE); PROTEIN URINE 1+ (NEGATIVE); SPECIFIC GRAVITY URINE 1.025 (1.005-1.030); UROBILINOGEN URINE 0.2 E.U./dL (0.2-1.0)
[2019-02-19] MEDS ORDERED: PIPERACILLIN/TAZOBACTAM 3.375GM/50ML PREMIX IV ONE (05:45)
[2019-02-19] MEDS ORDERED: PIPERACILLIN/TAZ 3.375G PREMIX 50 ML IV NR (05:45)
[2019-02-19] MEDS ORDERED: IOHEXOL-300 100 ML BOTTLE ONE (06:29)
[2019-02-19 08:00] VITALS: BP 152/91
[2019-02-19] MEDS ORDERED: ONDANSETRON HCL 4MG/2ML INJ IV PRN (09:30)
[2019-02-19] MEDS ORDERED: MORPHINE SULFATE 2 MG/ML CPJ (NOT FOR IM USE) IV PRN (09:30)
[2019-02-19 12:00] VITALS: BP_SYST 115; BP_SYST 152; BP_DIAS 76; BP_DIAS 91
[2019-02-19] MEDS: DEXT 5%/0.45% NACL 1000ML 1,000 ML IV SCH (12:09)
[2019-02-19] MEDS: PIPERACILLIN/TAZ 3.375G PREMIX 50 ML IV SCH ×3 (12:10→23:45)
[2019-02-19] MEDS: TAMSULOSIN HCL 0.4MG SR CAPSULE PO SCH (12:17)
[2019-02-19 13:38] LABS: BASOPHILS % 0.4 % (0.0-2.0); EOSINOPHILS % 0.6 % (0.0-5.0); HEMATOCRIT. 37.2 % (42.0-52.0); HEMOGLOBIN. 12.4 g/dL (14.0-18.0); LYMPHOCYTES % 9.8 % (20.0-50.0); MEAN CORPUSCULAR HEMOGLOBIN 30.5 pg (28.0-32.0); MEAN CORPUSCULAR VOLUME 91.8 fL (80.0-94.0); MEAN PLATELET VOLUME 9.5 fl (7.4-10.4); MONOCYTES % 14.4 % (2.0-8.0); NEUTROPHILS % 74.8 % (40.0-76.0); PLATELET 273 x1000/uL (130-400); RED BLOOD CELL COUNT 4.05 mill/uL (4.7-6.1); RED CELL DISTRIBUTION WIDTH 15.4 % (11.6-14.6)
[2019-02-19 13:41] LABS: INR 1.4; PROTHROMBIN TIME 13.6 sec (9.1-11.1)
[2019-02-19 13:43] LABS: CHLORIDE 102 mEq/L (98-107)
[2019-02-19] MEDS ORDERED: ENOXAPARIN 100MG/ML SYR SUBCUT SCH (14:00)
[2019-02-19 16:00] VITALS: BP 116/75
[2019-02-19 20:34] VITALS: BP 123/73
[2019-02-20 00:51] VITALS: BP 118/66
[2019-02-20] MEDS: DEXT 5%/0.45% NACL 1000ML 1,000 ML IV SCH ×3 (02:46→18:32)
[2019-02-20 04:00] VITALS: BP 117/70
[2019-02-20] MEDS: PIPERACILLIN/TAZ 3.375G PREMIX 50 ML IV SCH ×3 (06:13→20:54)
[2019-02-20 06:58] LABS: BASOPHILS % 0.5 % (0.0-2.0); EOSINOPHILS % 9.7 % (0.0-5.0); HEMATOCRIT. 35.1 % (42.0-52.0); HEMOGLOBIN. 11.5 g/dL (14.0-18.0); LYMPHOCYTES % 11.6 % (20.0-50.0); MEAN CORPUSCULAR HEMOGLOBIN 30.3 pg (28.0-32.0); MEAN CORPUSCULAR VOLUME 92.8 fL (80.0-94.0); MEAN PLATELET VOLUME 9.8 fl (7.4-10.4); MONOCYTES % 11.2 % (2.0-8.0); PLATELET 245 x1000/uL (130-400); RED BLOOD CELL COUNT 3.78 mill/uL (4.7-6.1); RED CELL DISTRIBUTION WIDTH 15.5 % (11.6-14.6)
[2019-02-20 07:12] LABS: CHLORIDE 106 mEq/L (98-107)
[2019-02-20 08:00] VITALS: BP 111/66
[2019-02-20] MEDS: TAMSULOSIN HCL 0.4MG SR CAPSULE PO SCH (09:04)
[2019-02-20 12:00] VITALS: BP 108/68
[2019-02-20] MEDS: ENOXAPARIN 40MG/0.4ML SYR SUBCUT SCH (15:12)
[2019-02-20 20:00] VITALS: BP 109/69
[2019-02-21] VITALS: BP 115/56
[2019-02-21] MEDS: MORPHINE SULFATE 4 MG/ML CPJ (NOT FOR IM USE) IV PRN ×2 (01:35→23:56)
[2019-02-21] MEDS: PIPERACILLIN/TAZ 3.375G PREMIX 50 ML IV SCH ×4 (02:16→19:48)
[2019-02-21] MEDS: DEXT 5%/0.45% NACL 1000ML 1,000 ML IV SCH ×3 (02:16→21:37)
[2019-02-21 04:00] VITALS: BP 111/66
[2019-02-21 06:36] LABS: HEMATOCRIT. 32.8 % (42.0-52.0); HEMOGLOBIN. 10.7 g/dL (14.0-18.0); MEAN CORPUSCULAR HEMOGLOBIN 30.2 pg (28.0-32.0); MEAN CORPUSCULAR VOLUME 92.5 fL (80.0-94.0); MEAN PLATELET VOLUME 9.5 fl (7.4-10.4); PLATELET 228 x1000/uL (130-400); RED BLOOD CELL COUNT 3.55 mill/uL (4.7-6.1); RED CELL DISTRIBUTION WIDTH 15.2 % (11.6-14.6)
[2019-02-21 08:00] VITALS: BP 105/65
[2019-02-21 08:02] LABS: CHLORIDE 104 mEq/L (98-107)
[2019-02-21] MEDS: TAMSULOSIN HCL 0.4MG SR CAPSULE PO SCH (09:28)
[2019-02-21] MEDS ORDERED: POTASSIUM CHLORIDE 20MEQ TABLET SR PO SCH (10:15)
[2019-02-21 11:13] LABS: PLATELET ESTIMATE NORMAL
[2019-02-21 12:00] VITALS: BP 115/75
[2019-02-21] MEDS: ENOXAPARIN 40MG/0.4ML SYR SUBCUT SCH (13:56)
[2019-02-21 16:00] VITALS: BP 122/62
[2019-02-21 20:00] VITALS: BP 115/72
[2019-02-22] VITALS: BP 114/69
[2019-02-22] MEDS: IPRATROPIUM BROMIDE (0.02%) 0.5MG/2.5ML NEB HHN PRN ×2 (01:10→21:18)
[2019-02-22] MEDS: PIPERACILLIN/TAZ 3.375G PREMIX 50 ML IV SCH ×4 (01:39→19:53)
[2019-02-22 04:00] VITALS: BP 115/77
[2019-02-22 07:35] LABS: HEMATOCRIT. 31.8 % (42.0-52.0); HEMOGLOBIN. 10.6 g/dL (14.0-18.0); MEAN CORPUSCULAR HEMOGLOBIN 30.7 pg (28.0-32.0); MEAN CORPUSCULAR VOLUME 92.2 fL (80.0-94.0); MEAN PLATELET VOLUME 10.1 fl (7.4-10.4); PLATELET 222 x1000/uL (130-400); RED BLOOD CELL COUNT 3.45 mill/uL (4.7-6.1); RED CELL DISTRIBUTION WIDTH 14.7 % (11.6-14.6)
[2019-02-22 07:50] LABS: CHLORIDE 105 mEq/L (98-107)
[2019-02-22 08:00] VITALS: BP 119/72
[2019-02-22] MEDS: DEXT 5%/0.45% NACL 1000ML 1,000 ML IV SCH ×2 (08:26→18:47)
[2019-02-22] MEDS: TAMSULOSIN HCL 0.4MG SR CAPSULE PO SCH (09:19)
[2019-02-22 12:00] VITALS: BP 117/78
[2019-02-22] MEDS ORDERED: POTASSIUM CHLORIDE 20MEQ TABLET SR PO SCH (13:00)
[2019-02-22 14:23] LABS: PLATELET ESTIMATE NORMAL
[2019-02-22] MEDS: ENOXAPARIN 40MG/0.4ML SYR SUBCUT SCH (15:35)
[2019-02-22 16:00] VITALS: BP 123/80
[2019-02-22 20:00] VITALS: BP 152/81
[2019-02-23] VITALS: BP 134/85
[2019-02-23] MEDS: PIPERACILLIN/TAZ 3.375G PREMIX 50 ML IV SCH ×3 (01:52→13:37)
[2019-02-23] MEDS: DEXT 5%/0.45% NACL 1000ML 1,000 ML IV SCH ×2 (03:51→13:37)
[2019-02-23 07:24] LABS: HEMATOCRIT. 33.7 % (42.0-52.0); HEMOGLOBIN. 10.9 g/dL (14.0-18.0); MEAN CORPUSCULAR HEMOGLOBIN 30.3 pg (28.0-32.0); MEAN CORPUSCULAR VOLUME 93.7 fL (80.0-94.0); MEAN PLATELET VOLUME 9.8 fl (7.4-10.4); PLATELET 247 x1000/uL (130-400); RED CELL DISTRIBUTION WIDTH 15.1 % (11.6-14.6)
[2019-02-23 08:00] VITALS: BP 129/78
[2019-02-23 09:01] LABS: CHLORIDE 105 mEq/L (98-107)
[2019-02-23] MEDS: TAMSULOSIN HCL 0.4MG SR CAPSULE PO SCH (09:45)
[2019-02-23] MEDS: ENOXAPARIN 40MG/0.4ML SYR SUBCUT SCH (13:37)
[2019-02-23 14:02] VITALS: BP 98/73
[2019-02-23 16:44] LABS: PLATELET ESTIMATE NORMAL
== END 2019-02-23 14:50 | DRG 720 ==
LOC: ER 02:56 → 6EST 05:52 → ENRESERV 07:42
PROVIDERS: ADMIT Internal Medicine; ATTEND Internal Medicine
PROC: 0D9670Z Drainage of Stomach with Drainage Device, Via Natural or Artificial Opening (ICD-10-PCS; principal; 2019-02-19)
DX: A41.9 Sepsis, unspecified organism (principal); N17.0 Acute kidney failure with tubular necrosis; J96.00 Acute respiratory failure, unspecified whether with hypoxia or hypercapnia; J18.9 Pneumonia, unspecified organism; I82.402 Acute embolism and thrombosis of unspecified deep veins of left lower extremity; E44.1 Mild protein-calorie malnutrition; K57.92 Diverticulitis of intestine, part unspecified, without perforation or abscess without bleeding; K56.609 Unspecified intestinal obstruction, unspecified as to partial versus complete obstruction; N39.0 Urinary tract infection, site not specified; J44.0 Chronic obstructive pulmonary disease with (acute) lower respiratory infection; E78.5 Hyperlipidemia, unspecified; E78.00 Pure hypercholesterolemia, unspecified; F17.200 Nicotine dependence, unspecified, uncomplicated; N18.9 Chronic kidney disease, unspecified; Z93.3 Colostomy status; Z71.6 Tobacco abuse counseling; Z68.23 Body mass index [BMI] 23.0-23.9, adult
CPT/HCPCS: 36415; 71045; 74018; 74177; 80048; 83605; 93005; 93970; 94640; 96365; 96375; 97162; 99285; J1650; J2270; J2405; J2543; J7030; Q9967

== ENCOUNTER 2019-06-17 06:39 | Inpatient (IN) | payer MEDICARE, MEDICAID ==
[~2019-06-17] VITALS: Ht 205.7 cm; Wt 104.3 kg
[~2019-06-17 06:39] MED LIST: ALBU18HF2 IH; MULT-1116 PO; TAMS-11 PO
[2019-06-17] MEDS ORDERED: LACTATED RINGERS 1,000 ML IV SCH (07:45)
[2019-06-17 07:49] LABS: CLARITY URINE CLOUDY (CLEAR); COLOR URINE YELLOW (YELLOW); KETONES URINE NEGATIVE (NEGATIVE); LEUKOCYTE ESTERASE URINE 3+ (NEGATIVE); NITRITE URINE NEGATIVE (NEGATIVE); OCCULT BLOOD URINE 1+ (NEGATIVE); PROTEIN URINE TRACE (NEGATIVE); SPECIFIC GRAVITY URINE 1.012 (1.005-1.030); UROBILINOGEN URINE 0.2 E.U./dL (0.2-1.0)
[2019-06-17] MEDS ORDERED: BUPIVACAINE HCL 0.5% (5MG/ML) 50ML ONE (08:14)
[2019-06-17] MEDS ORDERED: SKIN ADHESIVE 0.7 GM EA TOP ONE (08:14)
[2019-06-17] MEDS ORDERED: BUPIVACAINE HCL 0.5% 290 ML in ON-Q PM015 DRUG DELIV DEVICE 1 EA IR SCH (08:25)
[2019-06-17] MEDS ORDERED: LEVOFLOXACIN 500MG PREMIX 100 ML IV ONE (08:27)
[2019-06-17] MEDS ORDERED: HYDROMORPHONE PCA 10MG/50ML IV PRN (11:45)
[2019-06-17] MEDS ORDERED: ONDANSETRON INJ IV PRN (11:45)
[2019-06-17] MEDS ORDERED: DIPHENHYDRAMINE INJ IV PRN (11:45)
[2019-06-17] MEDS ORDERED: NALOXONE INJ IV PRN (11:45)
[2019-06-17 14:20] VITALS: BP 149/95
[2019-06-17 16:00] VITALS: BP 149/95
[2019-06-17] MEDS ORDERED: ONDANSETRON HCL 4MG/2ML INJ IV PRN (16:00)
[2019-06-17] MEDS ORDERED: MORPHINE SULFATE 2 MG/ML CPJ (NOT FOR IM USE) IV PRN (16:00)
[2019-06-17] MEDS: DEXT 5%/0.45% NACL KCL 20MEQ/L 1,000 ML IV SCH (18:07)
[2019-06-17] MEDS: CEFAZOLIN 1000MG PREMIX 50 ML IV SCH (18:07)
[2019-06-17 20:00] VITALS: BP 155/82
[2019-06-17] MEDS: FAMOTIDINE 20MG/2ML VIAL IV SCH (21:27)
[2019-06-17] MEDS: METRONIDAZOLE 500 MG PREMIX 100 ML IV SCH (21:28)
[2019-06-18] VITALS: BP 155/71
[2019-06-18] MEDS: CEFAZOLIN 1000MG PREMIX 50 ML IV SCH ×2 (01:05→10:10)
[2019-06-18 04:00] VITALS: BP 140/74
[2019-06-18] MEDS: DEXT 5%/0.45% NACL KCL 20MEQ/L 1,000 ML IV SCH ×3 (05:04→23:17)
[2019-06-18] MEDS: METRONIDAZOLE 500 MG PREMIX 100 ML IV SCH ×2 (05:04→12:54)
[2019-06-18 06:51] LABS: HEMATOCRIT. 40.6 % (42.0-52.0); HEMOGLOBIN. 13.6 g/dL (14.0-18.0); MEAN CORPUSCULAR HEMOGLOBIN 29.8 pg (28.0-32.0); MEAN CORPUSCULAR VOLUME 88.5 fL (80.0-94.0); MEAN PLATELET VOLUME 8.9 fl (7.4-10.4); PLATELET 273 x1000/uL (130-400); RED BLOOD CELL COUNT 4.59 mill/uL (4.7-6.1); RED CELL DISTRIBUTION WIDTH 14.9 % (11.6-14.6)
[2019-06-18 07:01] LABS: CHLORIDE 105 mEq/L (98-107)
[2019-06-18 08:00] VITALS: BP 137/90
[2019-06-18] MEDS: FAMOTIDINE 20MG/2ML VIAL IV SCH ×2 (08:42→21:23)
[2019-06-18 12:10] VITALS: BP 125/81
[2019-06-18 16:00] VITALS: BP 137/86
[2019-06-18 16:38] LABS: PLATELET ESTIMATE NORMAL
[2019-06-18 20:00] VITALS: BP 147/95
[2019-06-19] VITALS: BP 140/94
[2019-06-19 04:00] VITALS: BP 140/96
[2019-06-19 08:22] VITALS: BP 100/58
[2019-06-19] MEDS: DEXT 5%/0.45% NACL KCL 20MEQ/L 1,000 ML IV SCH ×2 (08:39→20:58)
[2019-06-19] MEDS: FAMOTIDINE 20MG/2ML VIAL IV SCH ×2 (08:39→22:26)
[2019-06-19 12:00] VITALS: BP 146/90
[2019-06-19 16:00] VITALS: BP 109/77
[2019-06-19 20:00] VITALS: BP 141/83
[2019-06-20] VITALS: BP 104/59
[2019-06-20 04:00] VITALS: BP 110/57
[2019-06-20] MEDS: DEXT 5%/0.45% NACL KCL 20MEQ/L 1,000 ML IV SCH ×2 (06:35→15:35)
[2019-06-20 08:00] VITALS: BP 130/77
[2019-06-20] MEDS: FAMOTIDINE 20MG/2ML VIAL IV SCH ×2 (08:20→20:06)
[2019-06-20 11:59] VITALS: BP 123/88
[2019-06-20 16:00] VITALS: BP 100/64
[2019-06-20 20:00] VITALS: BP 113/71
[2019-06-21] VITALS: BP 122/64
[2019-06-21] MEDS: DEXT 5%/0.45% NACL KCL 20MEQ/L 1,000 ML IV SCH ×2 (02:07→14:22)
[2019-06-21 04:00] VITALS: BP 103/55
[2019-06-21 08:00] VITALS: BP 110/69
[2019-06-21] MEDS: FAMOTIDINE 20MG/2ML VIAL IV SCH (09:12)
[2019-06-21 12:00] VITALS: BP 105/65
[2019-06-21 16:00] VITALS: BP 130/74
[2019-06-21 20:00] VITALS: BP 135/81
[2019-06-22] VITALS: BP 131/81
[2019-06-22] MEDS: FAMOTIDINE 20MG/2ML VIAL IV SCH ×3 (03:34→21:04)
[2019-06-22] MEDS: DEXT 5%/0.45% NACL KCL 20MEQ/L 1,000 ML IV SCH ×3 (03:35→18:03)
[2019-06-22 04:00] VITALS: BP 117/78
[2019-06-22 08:00] VITALS: BP 129/80
[2019-06-22 12:02] VITALS: BP 132/85
[2019-06-22 15:37] VITALS: BP 120/80
[2019-06-22] MEDS: MORPHINE SULFATE 2 MG/ML CPJ (NOT FOR IM USE) IV PRN ×2 (18:03→22:19)
[2019-06-22 20:00] VITALS: BP 127/82
[2019-06-23] VITALS: BP 118/82
[2019-06-23] MEDS: MORPHINE SULFATE 2 MG/ML CPJ (NOT FOR IM USE) IV PRN (03:39)
[2019-06-23] MEDS: DEXT 5%/0.45% NACL KCL 20MEQ/L 1,000 ML IV SCH ×2 (03:43→23:00)
[2019-06-23 04:00] VITALS: BP 119/84
[2019-06-23 08:00] VITALS: BP 131/79
[2019-06-23] MEDS: FAMOTIDINE 20MG/2ML VIAL IV SCH ×2 (09:24→21:00)
[2019-06-23 12:00] VITALS: BP 124/74
[2019-06-23 16:00] VITALS: BP 137/86
[2019-06-23 20:00] VITALS: BP_SYST 121; BP_SYST 132; BP_DIAS 76; BP_DIAS 90
[2019-06-24] VITALS: BP 131/66
[2019-06-24 04:00] VITALS: BP 112/71
[2019-06-24 09:20] VITALS: BP 100/77
== END 2019-06-24 11:38 | disposition home or self-care (01) | DRG 231 ==
LOC: OR 06:39 → 6EST 06:40
PROVIDERS: ADMIT Surgery; ATTEND Surgery
PROC: 0DTN0ZZ Resection of Sigmoid Colon, Open Approach (ICD-10-PCS; principal; 2019-06-17)
PROC: 0DTP0ZZ Resection of Rectum, Open Approach (ICD-10-PCS; 2019-06-17)
PROC: 0DSM0ZZ Reposition Descending Colon, Open Approach (ICD-10-PCS; 2019-06-17)
DX: K57.32 Diverticulitis of large intestine without perforation or abscess without bleeding (principal); K56.7 Ileus, unspecified; K82.8 Other specified diseases of gallbladder; Z93.3 Colostomy status
CPT/HCPCS: 36415; 80048; 86850; 86900; 88304; 88307; 97116; 97162; C1893; J0690; J1170; J1956; J2270; J3490; J7517